=== PATIENT | male | born 1960 | race Caucasian/White ===

== ENCOUNTER 2018-06-10 20:20 | Outpatient (REF) | payer SELFPAY ==
[2018-06-10 20:57] LABS: ALT 47 U/L (12-78); AST 33 U/L (15-37); Albumin 3.9 g/dL (3.4-5.0); Alkaline Phosphatase 70 U/L (46-116); Anion Gap 7.8 mmol/L (3-11); BUN 16 mg/dL (7-18); Bilirubin, Total 0.4 mg/dL (0.2-1.0); CO2 27.2 mmol/L (21.0-32.0); Calcium 8.8 mg/dL (8.5-10.1); Chloride 101 mmol/L (98-107); Glucose 105 mg/dL (70-100); Potassium 3.6 mmol/L (3.5-5.1); Sodium 136 mmol/L (136-145); Total Protein 7.5 g/dL (6.4-8.2)
== END 2018-06-10 20:40 ==
LOC: NCHCN 20:20
PROVIDERS: PCP Nurse Practitioner Family; Referring Provider Physician Assistant Medical; Visit Provider Physician Assistant Medical
DX: I10 Essential (primary) hypertension (principal); E78.5 Hyperlipidemia, unspecified; F10.99 Alcohol use, unspecified with unspecified alcohol-induced disorder; M10.9 Gout, unspecified
CPT/HCPCS: 80053

== ENCOUNTER 2018-12-18 08:14 | Outpatient (REF) | payer SELFPAY ==
[2018-12-18 18:41] LABS: ALT 43 U/L (12-78); AST 37 U/L (15-37); Albumin 3.9 g/dL (3.4-5.0); Alkaline Phosphatase 65 U/L (46-116); Anion Gap 9.8 mmol/L (3-11); BUN 16 mg/dL (7-18); Bilirubin, Total 0.4 mg/dL (0.2-1.0); CO2 28.2 mmol/L (21.0-32.0); CREATININE 0.97 mg/dL (0.70-1.30); Calcium 9.1 mg/dL (8.5-10.1); Chloride 99 mmol/L (98-107); Cholesterol 180 mg/dL (50-200); Glucose 95 mg/dL (70-100); HDL Cholesterol 40 mg/dL (40-60); LDL CHOLESTEROL 118 mg/dL (<100); Potassium 4.2 mmol/L (3.5-5.1); Sodium 137 mmol/L (136-145); Total Protein 7.6 g/dL (6.4-8.2); Triglyceride 90 mg/dL (30-150)
[2018-12-18 19:20] LABS: Creatine Kinase 197 U/L (39-308)
== END 2018-12-18 08:34 ==
LOC: NCHCN 08:14
PROVIDERS: PCP Nurse Practitioner Family; Visit Provider Nurse Practitioner Family
DX: I10 Essential (primary) hypertension (principal); E78.5 Hyperlipidemia, unspecified; F10.99 Alcohol use, unspecified with unspecified alcohol-induced disorder; E66.9 Obesity, unspecified
CPT/HCPCS: 80053; 80061; 82550; 83721

== ENCOUNTER 2019-05-16 15:49 | Emergency (ER) | payer SELFPAY ==
[2019-05-16 15:53] VITALS: BP 188/110; PULSE 55; RESP 12; TEMP 36.8; O2SAT 97
--- NOTE | 2019-05-16 16:13 | DI.RAD_ITS ---
SYMPTOMS/DIAGNOSIS: PAIN LEFT KNEE: There is spurring at the quadriceps insertion on the patella. There may be a small joint effusion. No fracture is identified. The joint spaces are well maintained. There are mild underlying degenerative changes. IMPRESSION: Small joint effusion. No evidence of fracture.
--- NOTE | 2019-05-16 16:51 | DI.VRAD_ITS ---
EXAM: XR Left Knee EXAM DATE/TIME: 05/16/2019 4:14 PM CLINICAL HISTORY: 58 years old, male; Pain; Knee; Left TECHNIQUE: Imaging protocol: XR Left knee. Views: 3 views. COMPARISON: No relevant prior studies available. FINDINGS: Bones/joints: Small knee effusion. No fracture or dislocation. Soft tissues: Unremarkable. Vasculature: Atherosclerotic calcification. IMPRESSION: Small joint effusion. No evidence for acute bony injury. Dictated and Authenticated by: Leisa Gutierrez MD. Ordering:GUILLERMO Segura MD
[2019-05-16 17:10] VITALS: BP 138/74; PULSE 58; RESP 20; TEMP 37.1; O2SAT 97
--- NOTE | 2019-05-16 17:10 | ED.GENADUL_ITS ---
Discharge Plan Disposition Patient Disposition: HOME Discharge Details Chief Complaint: Orthopedic Primary Care Provider: Spring Oleary ED Provider: Colton Mendez Home Meds and New Rx's Prescriptions: New indomethacin 50 mg capsule 50 mg PO TID PRN (Reason: pain) 5 Days RF: 0 Continued allopurinol 100 mg Tablet 100 mg PO DAILY RF: 0 simvastatin 40 mg Tablet 40 mg PO DAILY RF: 0 atenolol 50 mg Tablet 50 mg PO DAILY RF: 0 No Action triamterene-hydrochlorothiazid 37.5-25 mg Capsule 1 cap PO DAILY RF: 0 Discharge Data Discharge Date/Time-TO BE ENTERED AT DEPARTURE: 05/16/19 17:55 Medical Decision Making Patient presenting the emergency department with chief complaint of left knee pain. Patient reports that this is been going on for the last month. He does state that this is similar in nature to previous episodes of his gout which she has had in his knees before, his ankles and his feet. Patient was seen and placed on some steroids by his primary care provider which is gave him some temporary relief but pain has returned. Physical exam shows slight swelling to left knee otherwise no erythema, patient does have range of motion that is painful but otherwise no other diagnostic findings are noted on exam. Plan to do radiological imaging of the knee. Patient given ketorolac pending results. Review of radiological imaging and radiologist interpretation shows Small joint effusion. No evidence for acute bony injury. Patient reassessed and does state some mild improvement of discomfort. I do feel this is a typical flareup of patient's gout and no other worsening symptoms. Patient is already on allopurinol so plan to place patient on indomethacin. Did discuss with patient colchicine but given possible side effects of nausea vomiting he states he does not want to use this medication. I do not feel that further steroids are required at this time. I feel the patient is safely able to be discharged but should follow-up with primary care provider if not improving. With notation is a patient is on a diuretic and patient states that his blood pressure has been running on the lower side recently. He does state he has the ability to check his blood pressure so given this I did have patient hold his hydrochlorothiazide until seen by primary care but to continue all of his other medications. After discussion of diagnosis and plan of care patient has no further needs, questions, or concerns and states clear understanding to return to the emergency department for any worsening symptoms. HPI General Mode of arrival: ambulatory . Date/Time Provider Initiated Documentation: 05/16/19 16:00 . Limitations to Documentation: no limitations . Information obtained by: patient . History of Present Illness 58 year old M presents to the emergency department with the chief complaint of Left knee pain, described as moderate and similar to prior episodes, Quality is described as aching and constant, and is localized to the left. Patient started experiencing this month(s) (1) and it has been constant. Patient notes no other symptoms.. Patient did receive the following treatments prior to arrival, other (Had been on steroids and allopurinol) Related Data Home Medications Medication Instructions Recorded Confirmed allopurinol 100 mg PO DAILY 05/16/19 05/16/19 atenolol 50 mg PO DAILY 05/16/19 05/16/19 indomethacin 50 mg PO TID PRN 5 Days cap 05/16/19 simvastatin 40 mg PO DAILY 05/16/19 05/16/19 triamterene-hydrochlorothiazid 1 cap PO DAILY 05/16/19 05/16/19 Previous Rx's Medication Instructions Recorded indomethacin 50 mg PO TID PRN 5 Days cap 05/16/19 Allergies Allergy/AdvReac Type Severity Reaction Status Date / Time No Known Allergies Allergy Unverified 05/16/19 15:56 General Stated Complaint: Orthopedic CURTIS: 4 Review of Systems Musculoskeletal Reports as per HPI, Reports joint swelling, Reports limited range of motion, Denies numbness, Reports stiffness and Denies tingling Integumentary/Breasts Denies rash, Denies sores and Denies wounds Neurologic Denies numbness and Denies tingling PFSH Social History Smoking/Tobacco Use Status: Never Alcohol Intake: current Alcohol Intake frequency: a few times a week Alcohol type: beer Drug use: Never Substance use type: does not use Do you feel safe at home: Yes Do you feel safe in your relationship?: Yes Exam Const General: cooperative and no acute distress Orientation: alert, awake and oriented x3 Resp Effort & Inspection: normal respiratory effort and able to speak in complete sentences Cardio Rate: regular rate Rhythm: regular rhythm Extrem Left lower extremity: hip/thigh Details: normal to inspection; no tenderness, knee Details: tenderness Location: of the lateral joint line, swelling and abnormal ROM Details: pain with active ROM; able to extend lower leg actively; no abrasions, no lacerations, no ecchymosis, no crepitus, no deformity and no unusual warmth and lower leg Details: normal to inspection; no erythema and no tenderness Course Vital Signs Temperature 36.8 C 05/16/19 15:53 Pulse 55 L 05/16/19 15:53 Respiratory Rate 12 05/16/19 15:53 Blood Pressure 188/110 H 05/16/19 15:53 Pulse Oximetry 97 05/16/19 15:53 Temperature 36.8 C 05/16/19 15:53 Temperature Source Temporal Artery Scan 05/16/19 15:53 Pulse 55 L 05/16/19 15:53 Respiratory Rate 12 05/16/19 15:53 Respiratory Effort Non-Labored 05/16/19 15:57 Blood Pressure 188/110 H 05/16/19 15:53 Blood Pressure Position Sitting 05/16/19 15:53 Pulse Oximetry 97 05/16/19 15:53 Oxygen Delivery Method Room Air 05/16/19 15:53 Oxygen Flow Rate 0 05/16/19 15:53 Pain Level 10 05/16/19 15:53
[2019-05-16] MEDS: Ketorolac 30 MG/ML VIAL IM (17:19)
[2019-05-16] MEDS: Indomethacin 25 MG CAP 100 MG PO (18:38)
== END 2019-05-16 17:55 | disposition home or self-care (01) ==
PROVIDERS: Emergency Provider Nurse Practitioner Family; PCP Nurse Practitioner Family
DX: M10.9 Gout, unspecified (principal); M25.462 Effusion, left knee
CPT/HCPCS: 29505; 73562; 96372; 99284; 99283; J1885; L1810

== ENCOUNTER 2019-06-07 15:42 | Outpatient (REF) | payer SELFPAY ==
[2019-06-07 21:45] LABS: Anion Gap 9.6 mmol/L (3-11); BUN 14 mg/dL (7-18); CO2 24.4 mmol/L (21.0-32.0); CREATININE 1.13 mg/dL (0.70-1.30); Calcium 8.3 mg/dL (8.5-10.1); Chloride 106 mmol/L (98-107); Glucose 93 mg/dL (70-100); Sodium 140 mmol/L (136-145)
== END 2019-06-07 16:02 ==
LOC: NCHCN 15:42
PROVIDERS: PCP Nurse Practitioner Family; Visit Provider Nurse Practitioner Family
DX: I10 Essential (primary) hypertension (principal)
CPT/HCPCS: 80048

== ENCOUNTER 2019-11-15 08:53 | Outpatient (REF) | payer SELFPAY ==
[2019-11-15 20:40] LABS: ALT 46 U/L (16-63); AST 30 U/L (15-37); BUN 16 mg/dL (7-18); Calcium 8.9 mg/dL (8.5-10.1); Calculated LDL 112 mg/dL (<100); Chloride 103 mmol/L (98-107); Cholesterol 173 mg/dL (<200); Glucose 103 mg/dL (74-106); HDL Cholesterol 43 mg/dL (40-60); Potassium 4.2 mmol/L (3.5-5.1); Sodium 139 mmol/L (136-145); Triglyceride 91 mg/dL (<150)
[2019-11-15 20:51] LABS: Creatine Kinase 167 U/L (39-308)
== END 2019-11-15 09:13 ==
LOC: NCHCN 08:53
PROVIDERS: PCP Nurse Practitioner Family; Visit Provider Nurse Practitioner Family
DX: E78.5 Hyperlipidemia, unspecified (principal); I10 Essential (primary) hypertension
CPT/HCPCS: 80048; 80061; 82550; 84450; 84460

== ENCOUNTER 2020-01-18 01:56 | Outpatient (CLI) | payer SELFPAY ==
--- NOTE | 2020-01-18 07:35 | DI.US_ITS ---
APPROVED REPORT EXAM: Comprehensive 2D, Doppler, and color-flow Echocardiogram Shipping Clerk Crating: Letty Garcia RDCS (AE) Indications: LVH, Cardiomyegaly Other Information Study Quality: Adequate Conclusion Normal left ventricular chamber size and wall thickness. Estimated ejection fraction is 55%. There are no segmental wall motion abnormalities . There is stage II diastolic dysfunction There is no chamber enlargement The aortic valve is trileaflet and sclerotic without stenosis. There is trace aortic regurgitation. Mitral valve is structurally normal. There is mild mitral regurgitation The tricuspid valve is structurally normal. There is trace tricuspid regurgitation. Estimated right ventricular systolic pressure is 25.7 mmHg The pulmonic valve is not well visualized Wall motion Left Ventricle The left ventricle is normal size. The left ventricular systolic function is normal. The left ventric ular ejection fraction is within the normal range. There is normal left ventricular wall thickness. T here is normal LV segmental wall motion. Transmitral Doppler flow pattern suggests pseudonormalizatio n. There is no ventricular septal defect visualized. LVEF is 55%. Right Ventricle The right ventricle is normal size. The right ventricular systolic function is normal. The RVSP is 25 .7 mmHg. Atria The left atrium size is normal. The right atrium size is normal. The interatrial septum is intact wit h no evidence for an atrial septal defect. Aortic Valve The Aortic valve is sclerotic. There is no aortic valvular stenosis. Trace aortic regurgitation. Mitral Valve The mitral valve is normal in structure. No evidence of mitral valve stenosis. Mild mitral regurgitat ion. Tricuspid Valve The tricuspid valve is normal in structure. There is no tricuspid valve stenosis. Trace tricuspid reg urgitation. Pulmonic Valve Pulmonic valve is not well visualized. There is no pulmonic valvular stenosis. There is no pulmonic v alvular regurgitation. Great Vessels The aortic root is normal in size. Ascending aorta is not well visualized. IVC is normal in size and collapses >50% with inspiration. Pericardium There is no pericardial effusion. There is no pleural effusion. 2D Dimensions IVSD d PLAX 0.86 cm M: 0.6-1.2 LV Vol A2C d MOD 117.2 mL LVPW d PLAX 0.88 cm M: 0.6 - 1.2 LV Vol A4C d MOD 141.5 mL LVID d PLAX 5.24 cm M: 4.2 - 5.8 LA vol/ BSA A2C s A-L 25.0 mL/m2 LVDs 3.75 cm M: 2.5 - 4.0 LA vol/ BSA A4C s A-L 31.5 mL/m2 Ao Root d 2.36 cm M: 3.1 - 3.7 LA Vol/ BSA Biplane s A-L 31.4 mL/m2 RA Area A4C 15.23 cm2 LA Area A4C s MOD 23.84 cm2 RA Vol/ BSA A4C s A-L 16.8 mL/m2 LA Area A2C s MOD 18.95 cm2 Ao Asc Diam d 3.17 cm M: 2.6 - 3.4 LV EF A4C MOD 53.6 % LV EF Teichholz 53.5 % LV EF A2C MOD 58.5 % LVEF (Gibbons's) 57.19 % M: 52 - 72 LV EF Biplane MOD 57.2 % LV Volume 93.82 mL M: 62 - 150 LV Volume Index 39.09 mL/m2 M: 34 - 74 LV Vol Biplane MOD 132.5 mL FS 27.75 % M-Mode TAPSE 3.95 cm (M/F) >1.7 LV Diastology MV E' medial 0.165 (>0.07 m/s) E/A Ratio 1.3 LV E/e MED 5.55 (<14) MV E Vmax 0.92 (0.4-1.3 m/s) MV E' lateral 0.132 (>0.1 m/s) MV A Vmax 0.70 (0.4-1.3 m/s) LV E/e LAT 6.95 (<14) MV E/A Ratio 1.30 MV E/E' medial 5.59 MV E/E' lateral 6.98 Aortic Valve LVOT Vmax 1.25 m/s LVOT Mean Supa. 0.73 m/s LVOT Peak Grad 6.3 mmHg LVOT Mean Grad 2.7 mmHg LVOT VTI 0.279 m AoV Vmax 1.75 (0.5-1.3 m/s) Velocity Ratio 0.71 AoV Mean Supa. 1.48 m/s AoV Peak Grad 12.3 mmHg AoV Mean Grad 9.1 (<5 mmHg) AoV VTI 0.529 (0.18-0.25 m) Mitral Valve MV DT 227 (160-240 msec) MR Vmax 5.67 m/s MV PHT 66 msec MR VTI 2.342 m MV Area PHT 3.35 cm2 MR Peak Grad 128.6 mmHg MR Mean Grad 88.0 mmHg MR PISA Radius 0.43 cm MR EROA 0.07 cm2 MR Aliasing Velocity 0.33 m/s MR PISA 1.17 cm2 Pulmonary Valve PV Vmax 1.22 (0.5-1.5 m/s) RVOT Peak Gr. 3.31 mmHg PV Peak Grad 5.9 mmHg RVOT Mean Gr. 1.80 mmHg PV Mean Grad 3.6 mmHg RVOT VTI 0.171 m PV VTI 0.280 m RVOT Vmax 0.91 m/s Tricuspid Valve TR Peak Grad 22.7 mmHg TR Vmax 2.38 m/s RA Pressure 3.00 mmHg RVSP (TR) 25.7 mmHg
== END 2020-01-18 02:16 ==
PROVIDERS: PCP Nurse Practitioner Family; Visit Provider Internal Medicine Cardiovascular Disease
DX: I51.7 Cardiomegaly (principal); I50.1 Left ventricular failure, unspecified; I35.8 Other nonrheumatic aortic valve disorders; I10 Essential (primary) hypertension
CPT/HCPCS: 93306

== ENCOUNTER 2020-11-13 13:48 | Outpatient (REF) | payer SELFPAY ==
[2020-11-13 15:45] LABS: ALT 40 U/L (16-63); AST 25 U/L (15-37); Anion Gap 7.5 mmol/L (3-11); BUN 17 mg/dL (7-18); CO2 26.5 mmol/L (21.0-32.0); CREATININE 0.9 mg/dL (0.70-1.30); Calculated LDL 115 mg/dL (<100); Chloride 104 mmol/L (98-107); Cholesterol 171 mg/dL (<200); Glucose 100 mg/dL (74-106); HDL Cholesterol 41 mg/dL (40-60); Potassium 4.1 mmol/L (3.5-5.1); Sodium 138 mmol/L (136-145); Triglyceride 77 mg/dL (<150)
[2020-11-13 15:56] LABS: Creatine Kinase 221 U/L (39-308)
== END 2020-11-13 13:49 | disposition home or self-care (01) ==
LOC: NCHCN 13:48
PROVIDERS: PCP Nurse Practitioner Family; Visit Provider Nurse Practitioner Family
DX: E78.5 Hyperlipidemia, unspecified (principal); I10 Essential (primary) hypertension
CPT/HCPCS: 80048; 80061; 82550; 84450; 84460

== ENCOUNTER 2021-07-04 08:33 | Outpatient (REF) | payer SELFPAY ==
[2021-07-06 22:48] LABS: COVID-19 RT-PCR UVMMC Result Positive (Negative)
== END 2021-07-04 08:34 | disposition home or self-care (01) ==
LOC: LBN 08:33
PROVIDERS: PCP Nurse Practitioner Family; Visit Provider Physician Assistant Medical
DX: Z20.822 Contact with and (suspected) exposure to COVID-19 (principal); J06.9 Acute upper respiratory infection, unspecified
CPT/HCPCS: U0003

== ENCOUNTER 2021-07-12 11:01 | Emergency (ER) | payer SELFPAY ==
[2021-07-12] VITALS (12 sets, daily range): BP systolic 102–174; BP diastolic 64–86; PULSE 94–108; RESP 5–48; TEMP 34–37.4; O2SAT 83–95
--- NOTE | 2021-07-12 11:00 | RT.EKG_ITS ---
APPROVED REPORT Exam: Resting ECG Reason for Exam: shortness of breath Patient Location: E HR:106 bpm ECG Measurements Heart Rate 106 AXIS OR 169 P 35 QRSd 102 QRS 11 QT 381 T 3 QTc 507 Conclusion Sinus tachycardia...rate> 99 Probable left atrial enlargement...P >50mS, <-0.10mV V1 Prolonged QT interval...QTc >500mS
--- NOTE | 2021-07-12 11:15 | DI.CT_ITS ---
Exam(s) CT CHEST PE CTA EXAM: CT CHEST PE CTA CLINICAL HISTORY: hypoxia. TECHNIQUE: Imaging Protocol: CT angiography of the chest was performed using pulmonary embolus sia col. Multi planar reconstructions were performed. CONTRAST MATERIAL: Intravenous: Omnipaque 350 Contrast volume: 100 cc COMPARISON: No exams were available for comparison FINDINGS: CHEST: PULMONARY ARTERIES: Suboptimal bolus injection. No central pulmonary emboli. Difficult to evaluate segmental vessels. LUNGS: There are extensive confluent ground-glass infiltrates involving all segments of all lobes of both lungs. No pleural effusions. No cavitation. No focal findings in the trachea and mainstem bro nchi.. MEDIASTINUM: There is no hilar nor mediastinal adenopathy. Visualized thyroid unremarkable. CARDIAC: Heart size is upper normal. There is no pericardial effusion.Caliber of the thoracic aorta is within normal limits. There is no significant shift of the interventricular septum. PARTIALLY VISUALIZED UPPERMOST ABDOMEN: No obvious findings OSSEOUS: No significant osseous lesions.. IMPRESSION: 1. Extensive bilateral infiltrates as described above.No pleural effusions. Findings are suspicious for Covid. 2. No central pulmonary emboli. Less than optimal quality for evaluating more peripheral pulmonary v essels. 3. No intrathoracic adenopathy. Findings discussed with ER provider. RADIATION DOSE DELIVERED: 780.03mGy.cm Total DLP DATA REPOSITORY: All CT scans at this facility are submitted to the National Radiology Data Registry (NRDR) Dose Index Registry (DIR) with the [employer] (ACR). RADIATION OPTIMIZATION: All CT scans at this facility use at least one of these dose optimization te chniques: automated exposure control; mA and/or kV adjustment per patient size (includes targeted exa ms where dose is matched to clinical indication); or iterative reconstruction.
--- NOTE | 2021-07-12 11:34 | ED.GENADUL_ITS ---
Discharge Plan Disposition Patient Disposition: [facility] Condition: Critical Discharge Details Chief Complaint: SOB Clinical Impression: COVID-19, Hypoxia Primary Care Provider: Spring Oleary ED Provider: Clifford Espitia Home Meds and New Rx's Prescriptions: No Action losartan 25 mg tablet 25 mg PO DAILY RF: 0 ibuprofen 800 mg tablet 800 mg PO TID PRNRF: 0 albuterol sulfate [ProAir HFA] 90 mcg/actuation HFA aerosol inhaler 2 puff IH Q6H PRNRF: 0 allopurinol 100 mg Tablet 100 mg PO DAILY RF: 0 simvastatin 40 mg Tablet 40 mg PO DAILY RF: 0 atenolol 50 mg Tablet 50 mg PO DAILY RF: 0 Medical Decision Making 61 yo male who states he tested positive for covid 10 days ago comes in with worsening shortness of breath and cough. He has not been vaccinated for covid per patient. He arrives appearing dyspneic and is in the 60's on room air. He was placed on bipap on arrival and is now at 96%. He denies chest pain or fever though has continued cough. HE has rhonchi throughout on lung exam. He has no leg edema or jvd. His presentation is consistent with severe covid. Will tx with a duoneb and dexamethasone and evaluate for potential other causes such as pe and pneumonia with labs and cta. labs show hyponatremia to 124, K of 2.9 repleted orally. Is tolerating cpap well after ativan, lungs unchanged after duoneb so do not feel additional will be of benefit, no obvious PE on cta and is consistent with covid pneumonia, will also cover with zosyn for bacterial pneumonia, no risk factors for mrsa. We have no beds here, no beds per nursing communications and signals supervisor at any of the local [facility] ([facility], [facility] [place] Will discuss with [facility]. Pt remains stable while on bipap. pt switched to HFNC as he was on the bipap for about 3 hours and wanted a break from the mask, remains stable. Discussed with [facility] and they do have a bed in their MICU and accept for transfer, accepting provider is Dr. Faith, pt and Letty updated. Differential Diagnosis Differential Diagnosis: covid, pneumonia, pe Medical Records Medical records reviewed: Yes I reviewed the patient's medical records. Imaging Data Radiologic Study: Attestation: I personally reviewed and interpreted this imaging study as follows: Imaging: CT Scan Radiologist's impression: IMPRESSION: 1. Extensive bilateral infiltrates as described above.No pleural effusions. Findings are suspicious for Covid. 2. No central pulmonary emboli. Less than optimal quality for evaluating more peripheral pulmonary vessels. 3. No intrathoracic adenopathy Lab Data Lab results reviewed: Yes I reviewed the patient's lab results. ECG Data Attestation: I personally reviewed and interpreted this ECG (s) as follows: Prior ECG tracings: not available for review Interpretation: sinus tachycardia, rate of 106, no acute st t wave ischemic findings HPI General Mode of arrival: ambulatory . Date/Time Provider Initiated Documentation: 07/12/21 11:01 . Limitations to Documentation: no limitations . Information obtained by: patient . History of Present Illness 61 year old M presents to the emergency department with the chief complaint of short of breath, described as severe, Patient started experiencing this day(s) (2) and it has been constant. No relieving factors improve symptom(s), No exacerbating factors reported . Patient notes cough. Patient did receive the following treatments prior to arrival, none Related Data Home Medications Medication Instructions Recorded Confirmed allopurinol 100 mg PO DAILY 05/16/19 07/11/20 atenolol 50 mg PO DAILY 05/16/19 07/11/20 simvastatin 40 mg PO DAILY 05/16/19 07/11/20 albuterol sulfate 90 mcg/actuation 2 puff IH Q6H PRN 12/28/19 07/11/20 aerosol inhaler ibuprofen 800 mg tablet 800 mg PO TID PRN 12/28/19 07/11/20 losartan 25 mg tablet 25 mg PO DAILY 12/28/19 07/11/20 Allergies Allergy/AdvReac Type Severity Reaction Status Date / Time No Known Allergies Allergy Unverified 07/12/21 11:34 General Stated Complaint: SOB CURTIS: 2 Review of Systems All systems reviewed & are unremarkable except as noted in HPI and below Constitutional Constitutional: Denies chills and Denies fever(s) Cardiovascular Cardiovascular: Denies chest pain Gastrointestinal Gastrointestinal: Denies abdominal pain, Denies nausea and Denies vomiting Genitourinary Genitourinary: Denies dysuria Musculoskeletal Musculoskeletal: Denies joint swelling Integumentary/Breasts Skin/Breast: Denies rash Psychiatric Psychiatric: Denies depression [facility] Medical History (Updated 07/12/21 @ 15:14 by Clifford Espitia MD) Atherosclerosis Gout HLD (hyperlipidemia) Hypertension Left knee pain Left lateral epicondylitis Left ventricular hypertrophy Murmur Right knee pain Social History (Updated 01/04/20 @ 12:40 by Zainab Cr RN) Smoking/Tobacco Use Status: Never Smoking risk assessment performed?: Yes Alcohol Intake: current Alcohol Intake frequency: a few times a week Alcohol type: beer Details: has a drink on weekends, 6-12 beer each time Drug use: Never Substance use type: does not use What type of physical activity do you participate in: additional Details: household work, yard work. Duration: > 90 minutes/day Frequency: daily Do you feel safe at home: Yes Do you feel safe in your relationship?: Yes Exam Const General: no acute distress Orientation: alert HENMT Head: normal to inspection Ears: external ears normal General nose exam: external nose normal Mouth: moist mucous membranes Eyes General: appearance normal, both eyes and all related structures Neck Neck: normal visual inspection Cardio Rate: regular rate Skin General skin exam: no rashes or lesions noted Neuro General: patient alert and patient oriented x3 Extrem General: normal to inspection Psych Mental Status: mental status grossly normal Course Vital Signs Vital signs: Vital Signs Temperature 36.2 C L 07/12/21 11:25 Pulse 107 H 07/12/21 11:25 Respiratory Rate 16 07/12/21 11:25 Blood Pressure 126/71 07/12/21 11:25 Pulse Oximetry 87 L 07/12/21 11:25 Temperature 36.2 C L 07/12/21 11:25 Temperature Source Tympanic 07/12/21 11:25 Pulse 107 H 07/12/21 11:25 Respiratory Rate 16 07/12/21 11:25 Blood Pressure 126/71 07/12/21 11:25 Blood Pressure Position Sitting 07/12/21 11:25 Pulse Oximetry 87 L 07/12/21 11:25 Oxygen Delivery Method Room Air 07/12/21 11:25 Oxygen Flow Rate 0 07/12/21 11:25 Pain Level 0 07/12/21 11:25 Lab/Test Results Lab/Test Results: 07/12/21 11:07 Blood Blood Culture - Pending 07/12/21 11:07 Blood Blood Culture - Pending
[2021-07-12] MEDS: Albuterol/Ipratropium 3 ML UPD VIAL UPD (12:00)
[2021-07-12] MEDS: REMDESIVIR 200 MG in Normal Saline 250 ML 250 MG IVPB (12:03)
[2021-07-12] MEDS: Dexamethasone 10 MG/ML VIAL IVP (12:03)
[2021-07-12] MEDS: LORazepam 2 MG/ML VIAL 1 MG IVP ×2 (12:04→16:21)
[2021-07-12 12:14] LABS: Source Nasal/Nares
[2021-07-12 12:21] LABS: HCT 42.3 % (40.0-50.0); HGB 15.1 g/dL (13.5-17.5); MCHC 35.7 % (32.0-36.0); MCV 83.9 fL (80-95); MPV 10.8 fL (8.0-11.0); Nucleated RBC 0 %; Platelet Count 210 10^3/uL (130-400); RBC 5.04 10^6/uL (4.36-5.78); RDW 12.3 % (11.8-14.1); RDW-SD 37.2 fL; WBC 7.79 10^3/uL (4.4-10.8)
[2021-07-12 12:35] LABS: ALT 138 U/L (16-63); AST 213 U/L (15-37); Absolute Lymphocyte Count 1.17 10^3/uL (1.2-3.4); Absolute Monocyte Count 0.31 10^3/uL (0.1-0.8); Absolute Neutrophil Count 6.31 10^3/uL (1.2-6.7); Albumin 2.8 g/dL (3.4-5.0); Alkaline Phosphatase 81 U/L (46-116); Anion Gap 8.5 mmol/L (3-11); Atypical Lymphocytes % 5; BUN 11 mg/dL (7-18); Bilirubin, Total 2.3 mg/dL (0.2-1.0); CO2 29.5 mmol/L (21.0-32.0); CREATININE 0.9 mg/dL (0.70-1.30); Calcium 8.2 mg/dL (8.5-10.1); Chloride 86 mmol/L (98-107); Diff Comment Manual Differential; Glucose 114 mg/dL (74-106); RBC Morphology Normal; Total Protein 7.1 g/dL (6.4-8.2); Troponin I < 0.05 ng/mL (<0.06)
[2021-07-12 12:36] LABS: Potassium 2.9 mmol/L (3.5-5.1); Sodium 124 mmol/L (136-145)
[2021-07-12 12:42] LABS: C-Reactive Protein 11.92 mg/dL (0.0-0.3); LDH 897 U/L (85-227); Magnesium 2.6 mg/dL (1.8-2.4); NT-proBNP 236 pg/mL (<300); TSH (W/Ref FT4) 0.79 uIU/mL (0.36-3.74)
[2021-07-12 12:49] LABS: D-Dimer 1583 ng/mlFEU (<500)
[2021-07-12] MEDS: Omnipaque 350 MG/ML 100 ML BTL IJ (13:01)
[2021-07-12] MEDS: Normal Saline - Diluent 50 ML VIAL IV (13:01)
[2021-07-12 13:03] LABS: COVID-19 PCR POSITIVE (Negative)
[2021-07-12 13:06] LABS: INR 1.3 (0.9-1.1); Prothrombin Time 12.9 sec (9.3-11.0)
[2021-07-12] MEDS: Potassium Chloride Liquid 20 MEQ PKT 40 MEQ PO (13:26)
[2021-07-12 13:30] LABS: Ferritin > 2000 ng/mL (26-388)
[2021-07-12 14:04] LABS: Lactate 2.2 mmol/L (0.6-1.4)
[2021-07-12] MEDS: PIPERACILLIN/TAZO 4.5 GM in Normal Saline 100 ML IVPB (14:29)
[2021-07-12 14:49] LABS: BE (Venous) 6 mmol/L (-2-3); HCO3 (Venous) 29 mmol/L (23-28); O2 Sat (Venous) 81 %; TCO2 (Venous) 26 mmol/L (24-29); pCO2 (Venous) 37 mmHg (41-51); pH (Venous) 7.51 (7.31-7.41); pO2 (Venous) 43 mmHg
[2021-07-12 15:39] LABS: Troponin I < 0.05 ng/mL (<0.06)
== END 2021-07-12 16:36 | disposition short-term general hospital (02) ==
PROVIDERS: Emergency Provider Emergency Medicine; PCP Nurse Practitioner Family
DX: U07.1 COVID-19 (principal); R09.02 Hypoxemia; J12.82 Pneumonia due to coronavirus disease 2019; E87.1 Hypo-osmolality and hyponatremia; E87.6 Hypokalemia
CPT/HCPCS: 36415; 71275; 80053; 82805; 87040; 87635; 93005; 94640; 96365; 96375; 96376; 99282; 99291; 82728; 83605; 83615; 83735; 83880; 84443; 84484; 85025; 85379; 85610; 86140; 93010; 94660; J1100; J2060; J2543; J3490; J7620

== ENCOUNTER 2021-11-19 12:40 | Outpatient (REF) | payer MEDICAID, SELFPAY ==
[2021-11-19 14:01] LABS: ALT 36 U/L (16-63); AST 25 U/L (15-37); Anion Gap 7.7 mmol/L (3-11); BUN 14 mg/dL (7-18); CO2 28.3 mmol/L (21.0-32.0); CREATININE 0.9 mg/dL (0.70-1.30); Calcium 9.1 mg/dL (8.5-10.1); Calculated LDL 101 mg/dL (<100); Chloride 104 mmol/L (98-107); Cholesterol 157 mg/dL (<200); Glucose 97 mg/dL (74-106); HDL Cholesterol 44 mg/dL (40-60); Hemoglobin A1C 5.7 % (<5.7); Potassium 3.9 mmol/L (3.5-5.1); Sodium 140 mmol/L (136-145); Triglyceride 61 mg/dL (<150)
[2021-11-19 14:12] LABS: Creatine Kinase 129 U/L (39-308)
== END 2021-11-19 12:41 | disposition home or self-care (01) ==
LOC: NCHCN 12:40
PROVIDERS: PCP Nurse Practitioner Family; Visit Provider Nurse Practitioner Family
DX: E78.5 Hyperlipidemia, unspecified (principal); K59.00 Constipation, unspecified; R05.8 Other specified cough; R06.02 Shortness of breath; M62.838 Other muscle spasm; R07.9 Chest pain, unspecified
CPT/HCPCS: 80048; 80061; 82550; 83036; 84450; 84460

== ENCOUNTER 2021-11-26 00:08 | Outpatient (CLI) | payer MEDICAID, SELFPAY ==
--- NOTE | 2021-11-26 | ETT_ITS ---
APPROVED REPORT Exam: Exercise Treadmill Patient Location: Out-Patient Room/Bed: Stress Nurse: Michelle Schneider RN Ordering Provider:KLEBER COOMBS, Contact Number: [phone] BMI: 40.90 Baseline Rhythm: Sinus Rhythm Indications: Chest pain, SOB, h/o covid, hypertension, angina Medical History Medical History: Hypertension, hyperlipidemia, heart murmur, LV hypertrophy, atherosclerosis, obesity , Covid-19 and PNA 07/2021, gout Cardiac Medications: Atenolol, losartan, simvastatin Allergies: Indomethacin Cardiac Risk Factors: Hypertension, hyperlipidemia, obesity, smoker (former), family hx Previous Cardiac Procedures: None Pretest Chest Pain Characteristics: None Exercise History: Sedentary Physical Disabilities: None Lung Sounds: Clear to auscultation Heart Sounds: Murmur Stress Test Details Test: Exercise stress testing was performed using a Werner protocol. Rest Stress HR Resting HR Supine: 62 bpm Max Heart Rate (APMHR): 161 bpm Resting HR Standin bpm Target HR (85% APMHR): 136 bpm Max HR Achieved: 154 bpm % of APMHR: 95 Recovery HR: 90 bpm HR response to stress: Normal HR response to stress Comment: Atenolol held for 24 hrs BP Resting BP Supine: 144/98 mmHg Resting BP Standin/96 mmHg Max BP: 164/100 mmHg Recovery BP: 136/80 mmHg BP response to stress: Normal blood pressure response to stress. ECG Resting ECG: Sinus Rhythm Ectopy: Rare PVCs Stress ECG: Sinus Tachycardia ST Change: No significant ST segment changes noted Arrhythmia: Rare PAC, occasional PVCs, couplet Recovery ECG: Sinus Rhythm Recovery ST Change: No significant ST segment changes noted Recovery Arrhythmia: Occasional PVCs, couplet Clinical Reason for Termination: Fatigue Stress Symptoms: General Fatigue, Dyspnea Exercise duration: 6 min34 sec Highest Stage Reached: Stage 3: 3.4 mph at 14% grade. Exercise capacity: 7.90 METs Chatterjee Treadmill Score: 6.2 Rate Pressure Product: [id number] Stress ECG Conclusion 1. The resting electrocardiogram was within normal limits 2. Mild hypertension at rest 3. Patient exercised on the Werner protocol and completed a workload of 7.9 METS, stopping due to fati marquita 4. Normal heart rate and blood pressure response to exercise. The patient achieved 95% of predicted heart rate for age 5. There was no electrocardiographic evidence of myocardial ischemia 6. There were no significant dysrhythmias Chatterjee Treadmill Score is 6.2 which is Low risk. Stress Test Summary STAGE Time (mins) Speed (mph) Grade (%) HR BP SYMPTOMS METS Supine 62 144/98 Standing 66 142/96 SpO2 97% 1 3 1.7 10 121 158/96 SpO2 90% 4.6 2 6 2.5 12 143 164/100 Mild SOB, SpO2 90% 7 3 9 3.4 14 152 Mild SOB, SpO2 89% 10.2 1 min recovery 126 164/98 Mild SOB, SpO2 92% 3 min recovery 98 166/86 SOB resolved, SpO2 94% 6 min recovery 90 136/80 SpO2 97%
== END 2021-11-26 00:28 ==
PROVIDERS: PCP Nurse Practitioner Family; Visit Provider Nurse Practitioner Family
DX: R07.89 Other chest pain (principal); R06.02 Shortness of breath; I10 Essential (primary) hypertension; I20.8 Other forms of angina pectoris; Z86.16 Personal history of COVID-19
CPT/HCPCS: 93017

== ENCOUNTER 2021-12-07 04:00 | Outpatient (CLI) | payer MEDICAID, SELFPAY ==
[2021-12-07] MEDS: Albuterol HFA 18 GM 200 PUFF INH IH (16:49)
[2021-12-07] MEDS: Inhaler, Assist Device 1 EACH MC (16:49)
[2021-12-07] MEDS: Methacholine 100 MG VIAL IH (16:49)
== END 2021-12-07 04:01 | disposition home or self-care (01) ==
LOC: RT 04:00
PROVIDERS: PCP Nurse Practitioner Family; Visit Provider Nurse Practitioner Family
DX: R06.09 Other forms of dyspnea (principal); R49.0 Dysphonia; U09.9 Post COVID-19 condition, unspecified
CPT/HCPCS: 94060; 94070; 94726; 94729; 94010; J7674

== ENCOUNTER 2022-02-22 02:01 | Outpatient (CLI) | payer MEDICAID, SELFPAY ==
--- NOTE | 2022-02-22 14:23 | W.PFT ---
Date of service: 02/22/22 Time of Service: 11:26 Pulmonary Function Test Result Requesting Provider Roxana Damian Indications: Restrictive lung disease Interpretation Spirometry: Both the MIP and MEP are significantly reduced for patient age and sex. Impression Reduced inspiratory and expiratory force. In a patient with restrictive lung disease, this could be due to deconditioning, but cannot exlude a neuromuscular disorder. Clinical Correlation therefore is recommended.
== END 2022-02-22 02:02 | disposition home or self-care (01) ==
LOC: RT 02:01
PROVIDERS: PCP Nurse Practitioner Family; Visit Provider Nurse Practitioner Family
DX: R06.02 Shortness of breath (principal); R94.2 Abnormal results of pulmonary function studies; J98.4 Other disorders of lung; Z86.16 Personal history of COVID-19
CPT/HCPCS: 94200

== ENCOUNTER → 2022-04-04 00:32 | Outpatient (CLI) | payer MEDICAID, SELFPAY ==
--- NOTE | 2022-04-04 08:30 | DI.CT_ITS ---
Exam(s) CT CHEST HIGH RESOLUTION EXAM: CT CHEST HIGH RESOLUTION CLINICAL HISTORY: restrictive lung disease, J98.4. TECHNIQUE: Multi planar reconstructions were performed. CONTRAST MATERIAL: None COMPARISON: CT CT CHEST PE CTA from 07/12/2021 FINDINGS: CHEST: LUNGS: There has been improvement when compared to prior CT scan of 07/12/2021. Most of the extensiv e infiltrate seen at that time have resolved. However, there are still mild benign-appearing increas ed markings in both upper lobes. Also in the basal segments of the right lower lobe. No pleural eff usions. No significant focal findings in the trachea and mainstem bronchi. MEDIASTINUM: There is no obvious hilar nor mediastinal adenopathy. Visualized thyroid unremarkable.No obvious axillary adenopathy CARDIAC: Heart size is normal. There is no pericardial effusion.Caliber of the thoracic aorta is wit hin normal limits. VISUALIZED UPPER ABDOMEN: OSSEOUS: No significant osseous lesions.No fractures. IMPRESSION: 1. Although there has been sys improvement in the bilateral infiltrates which were evident on 1, there are still some increased abnormal markings throughout both lung rao, not associated with pleural effusions nor lymphadenopathy. 0 full to determine if these are residual markings from the p reviously present extensive bilateral infiltrates or if these are increasing current markings. 2. No focal findings in trachea and mainstem bronchi 3. RADIATION DOSE DELIVERED: 834.7mGy.cm Total DLP DATA REPOSITORY: All CT scans at this facility are submitted to the National Radiology Data Registry (NRDR) Dose Index Registry (DIR) with the [employer] ([employer]). RADIATION OPTIMIZATION: All CT scans at this facility use at least one of these dose optimization te chniques: automated exposure control; mA and/or kV adjustment per patient size (includes targeted exa ms where dose is matched to clinical indication); or iterative reconstruction.
== END ==
PROVIDERS: PCP Nurse Practitioner Family; Visit Provider Nurse Practitioner Family
DX: J98.4 Other disorders of lung (principal); R91.8 Other nonspecific abnormal finding of lung field
CPT/HCPCS: 71250

== ENCOUNTER 2022-10-07 08:37 | Outpatient (REF) | payer MEDICAID, SELFPAY ==
[2022-10-07 17:16] LABS: ALT 43 U/L (16-63); AST 33 U/L (15-37); Anion Gap 7.8 mmol/L (3-11); BUN 14 mg/dL (7-18); CO2 27.2 mmol/L (21.0-32.0); Calcium 9.4 mg/dL (8.5-10.1); Chloride 105 mmol/L (98-107); Creatine Kinase 202 U/L (39-308); Estimated GFR 86.16 (mL/min/1.73m2); Glucose 107 mg/dL (74-106); Sodium 140 mmol/L (136-145); Uric Acid 4.4 mg/dL (3.5-7.2)
[2022-10-07 17:59] LABS: Calculated LDL 102 mg/dL (<100); Cholesterol 156 mg/dL (<200); HDL Cholesterol 43 mg/dL (40-60); Triglyceride 56 mg/dL (<150)
[2022-10-07 20:01] LABS: Hemoglobin A1C 5.7 % (<5.7)
== END 2022-10-07 08:38 | disposition home or self-care (01) ==
LOC: NCHCN 08:37
PROVIDERS: PCP Nurse Practitioner Family; Visit Provider Nurse Practitioner Family
DX: I10 Essential (primary) hypertension (principal); E78.5 Hyperlipidemia, unspecified; R73.03 Prediabetes; M10.9 Gout, unspecified
CPT/HCPCS: 80048; 80061; 82550; 83036; 84450; 84460; 84550

== ENCOUNTER 2023-03-28 02:23 | Outpatient (CLI) | payer MEDICAID, SELFPAY ==
[2023-03-28] MEDS: Inhaler, Assist Device 1 EACH MC (11:04)
[2023-03-28] MEDS: Albuterol HFA 18 GM 200 PUFF INH IH (11:04)
--- NOTE | 2023-04-01 12:29 | W.PFT ---
Date of service: 03/28/23 Time of Service: 09:58 Pulmonary Function Test Result Indications: Restrictive lung disease Interpretation Spirometry: There is no airflow limitation. No significant bronchodilator response. There is restrictive appearing spirometry. Lung Volumes: Normal lung volumes Diffusion Capacity: Normal diffusion Airway Pressure: Normal airways resistance Impression Normal pulmonary function testing. The restrictive spirometry is likely due to an elevated BMI. Note: When compared to 12/07/21, the restrictive lung disease has resolved Clinical Correlation therefore is recommended.
== END 2023-03-28 02:24 | disposition home or self-care (01) ==
LOC: RT 02:23
PROVIDERS: PCP Nurse Practitioner Family; Visit Provider Student in an Organized Health Care Education/Training Program
DX: J98.4 Other disorders of lung (principal)
CPT/HCPCS: 94060; 94726; 94729

== ENCOUNTER → 2023-05-20 02:00 | Outpatient (CLI) | payer MEDICAID, SELFPAY ==
--- NOTE | 2023-05-20 | DI.US_ITS ---
APPROVED REPORT EXAM: Comprehensive 2D, Doppler, and color-flow Echocardiogram Patient Location: Out-Patient [employer] Analyst: Jerel Maciel RDCS (AE) Indications: murmur, grade 2 diastolic dysfunction, compare to 2020 echo Other Information Study Quality: Adequate Conclusion Borderline concentric left ventricular hypertrophy. Ejection fraction is 55%. Wall motion is normal . There is stage II diastolic dysfunction Normal right ventricular size and systolic function Both atria are normal in size Aortic valve is trileaflet and mildly sclerotic without stenosis or regurgitation Estimated right ventricular systolic pressure is 22 mmHg Compared to study from 2020, there is no overall significant change Wall motion Left Ventricle The left ventricle is normal size. The left ventricular systolic function is normal. The left ventric ular ejection fraction is within the normal range. Borderline concentric left ventricular hypertrophy . There is normal LV segmental wall motion. There is no ventricular septal defect visualized. LVEF is 55%. Right Ventricle The right ventricle is normal size. Right ventricular systolic function is grossly normal. The RVSP i s 22.3 mmHg. Atria The left atrium size is normal. The right atrium size is normal. The interatrial septum is intact wit h no evidence for an atrial septal defect. Aortic Valve The Aortic valve is sclerotic. Aortic valve is trileaflet. There is no aortic valvular stenosis. No a ortic regurgitation is present. Mitral Valve The mitral valve is normal in structure. No evidence of mitral valve stenosis. Mild mitral regurgitat ion. Tricuspid Valve The tricuspid valve is normal in structure. There is no tricuspid valve stenosis. Mild tricuspid regu rgitation. Pulmonic Valve The pulmonary valve is normal in structure. There is no pulmonic valvular stenosis. There is no pulmo juan carlos valvular regurgitation. Great Vessels The aortic root is normal in size. The ascending aorta is normal in size. Aortic arch is normal in ca liber. IVC is normal in size and collapses >50% with inspiration. Pericardium There is no pericardial effusion. 2D Dimensions IVSD d PLAX 1.03 cm M: 0.6-1.2 Ao Root d 2.80 cm M: 3.1 - 3.7 LVPW d PLAX 0.93 cm M: 0.6 - 1.2 Ao Asc Diam d 3.39 cm M: 2.6 - 3.4 LVID d PLAX 4.90 cm M: 4.2 - 5.8 LVDs 3.62 cm M: 2.5 - 4.0 LV EF Teichholz 51.0 % FS 26.04 % LV EDV (Teich) 112.6 mL LV ESV (Teich) 55.2 mL Stroke Vol Index (Teich) 24.01 M-Mode TAPSE 3.23 cm (M/F) >1.7 Auto EF LV EDV A4C 149.6 mL LV EDV A2C 177.5 mL LV EDV BP LV ESV A4C 70.9 mL LV ESV A2C 89.5 mL LV ESV BP LVEF(%) A4C 52.6 % LVEF(%) A2C 49.6 % LVEF(%) BP LV SV A4C 78.7 ml LV SV A2C 87.9 ml LV SV BP LV CO A4C 3.8 L/min LV CO A2C 4.4 L/min LV CO BP HR A4C 48.32 BPM HR A2C 50.14 BPM LV EDV Index (BP) LA Volume LA Length A4C 5.0 cm LA Length A2C LA Area A4C s 13.33 cm2 LA Area A2C s LA Vol A4C A-L 30.31 mL LA Vol A2C A-L LA Vol Biplane A-L LA Vol A4C MOD 28.9 mL LA Vol A2C MOD LA Vol BP MOD RA Volume RA Area A4C 16.3 cm2 RA ESV A4C (A-L) 40.6mL RA Vol/BSA A4C A-L RA Length A4C 5.6 cm RA ESV A4C (MOD) 39.7mL LV Diastology MV E' medial 0.106 (>0.07 m/s) MV E Vmax 0.90 (0.4-1.3 m/s) MV E/E' MED 8.50 (<14) MV A Vmax 0.80 (0.4-1.3 m/s) MV E' lateral 0.096 (>0.1 m/s) E/A Ratio 1.1 MV E/E' LAT 9.37 (<14) MV E' Average 0.101 m/s MV E/E'(average) 8.91 Aortic Valve AoV Vmax 1.65 m/s LVOT Vmax 0.88 m/s AoV Peak Grad 10.9 mmHg LVOT Peak Grad 3.1 mmHg AoV Area (Vmax) 1.92 cm2 LVOT VTI 0.209 m AoV VTI 0.381 m LVOT Mean Grad 1.3 mmHg AoV Mean Supa. 1.25 m/s LVOT SV 74.83 mL AoV Mean Grad 6.8 mmHg LVOT Diam s 2.10 cm AoV Area (VTI) 1.97 cm2 Velocity Ratio 0.53 Mitral Valve MV DT 239 (160-240 msec) Pulmonary Valve PV Vmax 0.67 (0.5-1.5 m/s) RVOT Vmax 0.51 m/s PV Peak Grad 1.8 mmHg RVOT Peak Gr. 1.1 mmHg PV Mean Supa 0.45 m/s RVOT VTI 0.116 m PV Mean Grad 0.9 mmHg RVOT Mean Gr. 0.5 mmHg Tricuspid Valve RA Pressure 3.00 mmHg TR Vmax 2.20 m/s TR Peak Grad 19.3 mmHg RVSP (TR) 22.3 mmHg
== END ==
PROVIDERS: PCP Nurse Practitioner Family; Visit Provider Nurse Practitioner Family
DX: R01.1 Cardiac murmur, unspecified (principal); I50.30 Unspecified diastolic (congestive) heart failure
CPT/HCPCS: 93306

== ENCOUNTER 2023-09-03 14:24 | Outpatient (REF) | payer MEDICAID, SELFPAY ==
[2023-09-03 15:51] LABS: Calculated LDL 103 mg/dL (<100); Cholesterol 165 mg/dL (<200); HDL Cholesterol 48 mg/dL (40-60); Triglyceride 71 mg/dL (<150)
== END 2023-09-03 14:25 | disposition home or self-care (01) ==
LOC: NCHCN 14:24
PROVIDERS: PCP Nurse Practitioner Family; Visit Provider Nurse Practitioner Family
DX: E78.5 Hyperlipidemia, unspecified (principal)
CPT/HCPCS: 80061

== ENCOUNTER 2023-09-22 15:38 | Outpatient (REF) | payer MEDICAID, SELFPAY ==
[2023-09-22 17:14] LABS: ALT 37 U/L (16-63); AST 27 U/L (15-37); Anion Gap 7.6 mmol/L (3-11); BUN 17 mg/dL (7-18); CO2 26.4 mmol/L (21.0-32.0); CREATININE 0.9 mg/dL (0.70-1.30); Calcium 9.2 mg/dL (8.5-10.1); Calculated LDL 98 mg/dL (<100); Chloride 103 mmol/L (98-107); Cholesterol 155 mg/dL (<200); Estimated GFR 97.17 (mL/min/1.73m2); Glucose 105 mg/dL (74-106); HDL Cholesterol 46 mg/dL (40-60); Potassium 3.8 mmol/L (3.5-5.1); Sodium 137 mmol/L (136-145); TSH (W/Ref FT4) 1.33 uIU/mL (0.36-3.74); Triglyceride 56 mg/dL (<150)
[2023-09-22 17:29] LABS: Vitamin D 25 Total 11.7 ng/mL (30-100)
[2023-09-22 17:35] LABS: Creatine Kinase 198 U/L (39-308); Hemoglobin A1C 5.8 % (<5.7)
== END 2023-09-22 15:39 | disposition home or self-care (01) ==
LOC: NCHCN 15:38
PROVIDERS: PCP Nurse Practitioner Family; Visit Provider Nurse Practitioner Family
DX: E78.5 Hyperlipidemia, unspecified (principal)
CPT/HCPCS: 80048; 80061; 82306; 82550; 83036; 84443; 84450; 84460

== ENCOUNTER 2024-08-23 08:31 | Outpatient (REF) | payer SELFPAY ==
[2024-08-23 16:05] LABS: Hemoglobin A1C 5.8 % (<5.7)
[2024-08-23 16:35] LABS: ALT 30 U/L (16-63); AST 26 U/L (15-37); Albumin 4.1 g/dL (3.4-5.0); Alkaline Phosphatase 71 U/L (46-116); Anion Gap 10.1 mmol/L (3-11); BUN 14 mg/dL (7-18); Bilirubin, Total 0.53 mg/dL (0.2-1.0); CO2 25.9 mmol/L (21.0-32.0); CREATININE 0.9 mg/dL (0.70-1.30); Calcium 9.5 mg/dL (8.5-10.1); Calculated LDL 88 mg/dL (<100); Chloride 105 mmol/L (98-107); Cholesterol 148 mg/dL (<200); Estimated GFR 96.57 (mL/min/1.73m2); Glucose 105 mg/dL (74-106); HDL Cholesterol 49 mg/dL (40-60); Potassium 4.1 mmol/L (3.5-5.1); Sodium 141 mmol/L (136-145); Triglyceride 58 mg/dL (<150)
== END 2024-08-23 08:32 | disposition home or self-care (01) ==
LOC: NCHCN 08:31
PROVIDERS: PCP Physician Assistant Medical; Visit Provider Physician Assistant Medical
DX: I10 Essential (primary) hypertension (principal); R73.03 Prediabetes; E78.5 Hyperlipidemia, unspecified; E55.9 Vitamin D deficiency, unspecified
CPT/HCPCS: 80053; 80061; 82306; 83036

== ENCOUNTER 2025-09-05 09:24 | Outpatient (REF) | payer MEDICAID, SELFPAY ==
[2025-09-05 16:43] LABS: ALT 36 U/L (10-49); AST 35 U/L (<34); Albumin 4.7 g/dL (3.2-5.0); Alkaline Phosphatase 78 U/L (46-116); Anion Gap 10.8 mmol/L (3-11); BUN 14 mg/dL (9-23); Bilirubin, Total 0.6 mg/dL (0.2-1.2); CO2 26.2 mmol/L (20.0-31.0); Calcium 9.6 mg/dL (8.3-10.6); Chloride 104 mmol/L (98-107); Cholesterol 179 mg/dL (<200); Glucose 99 mg/dL (74-106); HDL Cholesterol 44 mg/dL (>or=40); Potassium 4.0 mmol/L (3.5-5.1); Sodium 141 mmol/L (136-145); Total Protein 7.8 g/dL (5.7-8.2)
[2025-09-05 18:16] LABS: Hemoglobin A1C 5.6 % (<5.7)
== END 2025-09-05 09:25 | disposition home or self-care (01) ==
LOC: NCHCN 09:24
PROVIDERS: PCP Physician Assistant Medical; Visit Provider Physician Assistant Medical
DX: E78.5 Hyperlipidemia, unspecified (principal); R73.03 Prediabetes; I10 Essential (primary) hypertension
CPT/HCPCS: 80053; 80061; 83036